=== PATIENT | female | born 1985 | race Caucasian/White ===

== ENCOUNTER 2018-11-13 08:00 | Emergency (ER) | payer BC ==
[~2018-11-13] VITALS: Ht 167.6 cm; Wt 59.0 kg
[2018-11-13] MEDS ORDERED: KETOROLAC 60MG/2ML VIAL IM ONE (08:30)
[2018-11-13] MEDS ORDERED: OXYCODONE HCL/ACETAMINOPHEN 5/325MG TABLET PO ONE (08:30)
[2018-11-13 08:54] VITALS: BP 133/83
== END 2018-11-13 09:00 | disposition home or self-care (01) ==
LOC: ER 08:00
DX: M54.5 Low back pain (principal); V49.49XA Driver injured in collision with other motor vehicles in traffic accident, initial encounter; Y93.89 Activity, other specified; Y92.410 Unspecified street and highway as the place of occurrence of the external cause
CPT/HCPCS: 81025; 96372; 99283; J1885